=== PATIENT | male | born 1945 | race Caucasian/White ===

== ENCOUNTER 2023-12-17 11:36 | Day surgery (SDC) | payer OTHER ==
[~2023-12-17] VITALS: Ht 182.9 cm; Wt 88.3 kg
[2023-12-17] VITALS (7 sets, daily range): BP systolic 128–146; BP diastolic 71–98; PULSE 52–75; RESP 15–16; TEMP 97.7; O2SAT 94–99
[2023-12-17] MEDS ORDERED: DILT-94 PO (12:09)
[2023-12-17] MEDS ORDERED: RIVA20TA PO (12:09)
[2023-12-17] MEDS ORDERED: FLUT1BLS9 INH (12:09)
[2023-12-17] MEDS ORDERED: FLO0.4C PO (12:09)
[2023-12-17] MEDS ORDERED: ATOR40TA PO (12:09)
[2023-12-17] MEDS ORDERED: AMI200T PO (12:09)
[2023-12-17] MEDS ORDERED: D3 (12:09)
[2023-12-17] MEDS ORDERED: BUDE10.2 INH (12:09)
[2023-12-17 12:34] LABS: BASOPHILS % (AUTO) 0.3 % (0-1); EOSINOPHILS # (AUTO) 0.1 X10'3 (0-0.9); EOSINOPHILS % (AUTO) 1.8 % (0-6); HEMATOCRIT 41.3 % (42.0-52.0); HEMOGLOBIN 13.7 g/dl (14.0-17.9); MEAN CORPUSCULAR HEMOGLOBIN 30.7 PG (27.0-31.0); MEAN CORPUSCULAR HGB CONC 33.3 g/dL (33.0-36.5); MEAN CORPUSCULAR VOLUME 92.2 FL (78-98); MEAN PLATELET VOLUME 7.1 FL (7.4-10.4); MONOCYTES # (AUTO) 0.7 X10'3 (0-0.9); MONOCYTES % (AUTO) 11.9 % (2-12); PLATELET COUNT 255 X10'3 (140-440); RED BLOOD COUNT 4.48 X10'6 (4.70-6.10); RED CELL DISTRIBUTION WIDTH 14.2 % (11.5-14.5); WHITE BLOOD COUNT 5.8 X10'3 (4.5-11.0)
[2023-12-17] MEDS: LORazepam 0.5 MG tablet PO PRN (12:42)
[2023-12-17] MEDS: diphenhydrAMINE 25mg capsule PO PRN (12:42)
[2023-12-17] MEDS: normal saline 1,000 ML IV SCH (12:43)
[2023-12-17 12:44] LABS: INR 1.1 INR; PROTHROMBIN TIME 11.4 SECONDS (9.0-12.0)
[2023-12-17] MEDS ORDERED: LIDOcaine 1% (10mg/ml) 2ml vial ONE (13:10)
[2023-12-17] MEDS ORDERED: midazolam 1 mg/ML 2ml injection ONE (13:11)
[2023-12-17] MEDS ORDERED: fentaNYL/PF 50MCG/1 ML 2ML syringe ONE (13:11)
[2023-12-17] MEDS ORDERED: heparin 1,000unit/ml 10ml vial 10 ML ONE (13:11)
[2023-12-17] MEDS ORDERED: iohexol 350MG/ML 100ml bottle IV ONE (13:11)
[2023-12-17] MEDS ORDERED: nitroGLYCERIN 500mcg/5mL D5W 5 ML IV ONE (13:11)
[2023-12-17] MEDS ORDERED: verapamil 2.5 mg/ml inj IV ONE (13:11)
[2023-12-17 13:22] LABS: ALBUMIN 3.6 G/DL (3.4-5.0); ANION GAP 9 (8-16); BLOOD UREA NITROGEN 22 MG/DL (7-18); BUN/CREATININE RATIO 17.7 (10.0-20.0); CALCIUM 8.6 MG/DL (8.5-10.1); CHLORIDE 107 MMOL/L (99-107); CREATININE 1.24 MG/DL (0.60-1.10); GLUCOSE 97 MG/DL (70-104); POTASSIUM 4.3 MMOL/L (3.5-5.1); SODIUM 142 MMOL/L (135-145); TOTAL CARBON DIOXIDE 25.7 MMOL/L (24-32); eCRCL 54 ML/MIN; eGFR 56 ML/MIN
[2023-12-17 13:28] LABS: CHOL/HDL RATIO 2.2 (0.00-4.99); CHOLESTEROL 129 MG/DL (0-200); HDL CHOLESTEROL 58 MG/DL (35-60); LDL CHOLESTEROL 57 MG/DL (50-100); TRIGLYCERIDES 111 MG/DL (20-135)
[2023-12-17] MEDS ORDERED: iohexol 300mg/ml 100ml inj. ONE (14:18)
[2023-12-17] MEDS ORDERED: heparin 1,000 UNITS/NS 500ml 500 ML ONE (14:41)
[2023-12-17] MEDS ORDERED: clopidogrel 300mg tablet ONE (14:57)
[2023-12-17] MEDS ORDERED: aspirin 325mg tablet ONE (14:57)
[2023-12-17] MEDS ORDERED: HYDROcodone/acetaminophen 10/325mg tab PO PRN (16:55)
[2023-12-17] MEDS ORDERED: HYDROcodone/acetaminophen 5mg/325mg tablet PO PRN (16:55)
== END 2023-12-17 17:40 | disposition home or self-care (01) ==
LOC: SSTAY O 11:36
PROVIDERS: ATTEND Student in an Organized Health Care Education/Training Program
DX: R94.39 Abnormal result of other cardiovascular function study (principal); I25.10 Atherosclerotic heart disease of native coronary artery without angina pectoris; I10 Essential (primary) hypertension; E78.00 Pure hypercholesterolemia, unspecified; I48.91 Unspecified atrial fibrillation; Z86.73 Personal history of transient ischemic attack (TIA), and cerebral infarction without residual deficits; Z85.118 Personal history of other malignant neoplasm of bronchus and lung; Z85.828 Personal history of other malignant neoplasm of skin; Z79.01 Long term (current) use of anticoagulants; Z79.899 Other long term (current) drug therapy
CPT/HCPCS: 36415; 80048; 80061; 85025; 85610; 92972; 93005; 93454; 99152; 99153; A6258; C1874; C9600; J1644; J2250; J3010; J3490; J7030; Q0163; Q9967; 76937; 96360; A6402; C1725; C1751; C1761; C1769; C1894

== ENCOUNTER 2024-07-24 10:07 | Emergency (ER) | payer OTHER, MEDICARE ==
[~2024-07-24] VITALS: Ht 180.3 cm; Wt 95.0 kg
[~2024-07-24 10:07] MED LIST: AMI200T PO; ATOR40TA PO; BUDE10.2 INH; D3; DILT-94 PO; FLO0.4C PO; FLUT1BLS9 INH; RIVA20TA PO
[2024-07-24 11:40] LABS: BASOPHILS % (AUTO) 0.2 % (0-1); EOSINOPHILS % (AUTO) 0.4 % (0-6); HEMATOCRIT 34.7 % (42.0-52.0); HEMOGLOBIN 11.8 g/dl (14.0-17.9); LYMPHOCYTES # (AUTO) 1.2 X10'3 (1.1-4.8); LYMPHOCYTES % (AUTO) 14.6 % (21-51); MEAN CORPUSCULAR HEMOGLOBIN 31.5 PG (27.0-31.0); MEAN CORPUSCULAR HGB CONC 34.1 g/dL (33.0-36.5); MEAN CORPUSCULAR VOLUME 92.5 FL (78-98); MONOCYTES # (AUTO) 0.7 X10'3 (0-0.9); MONOCYTES % (AUTO) 9.1 % (2-12); NEUTROPHILS % (AUTO) 75.7 % (42-75); PLATELET COUNT 243 X10'3 (140-440); RED BLOOD COUNT 3.75 X10'6 (4.70-6.10); RED CELL DISTRIBUTION WIDTH 14.9 % (11.5-14.5)
[2024-07-24 11:44] VITALS: TEMP 97.7
[2024-07-24 11:44] LABS: PROTHROMBIN TIME 10.9 SECONDS (9.0-12.0)
[2024-07-24 11:56] LABS: ALBUMIN 3.5 G/DL (3.4-5.0); ANION GAP 10 (8-16); BLOOD UREA NITROGEN 16 MG/DL (7-18); CALCIUM 8.4 MG/DL (8.5-10.1); CHLORIDE 102 MMOL/L (99-107); CREATININE 1.07 MG/DL (0.60-1.10); GLUCOSE 94 MG/DL (70-104); POTASSIUM 4.2 MMOL/L (3.5-5.1); PRO BRAIN NATRIURETIC PEPTIDE 913 PG/ML (0-450); SODIUM 134 MMOL/L (135-145); TOTAL CARBON DIOXIDE 21.6 MMOL/L (24-32); eCRCL 61 ML/MIN; eGFR 67 ML/MIN
[2024-07-24 12:42] VITALS: BP 119/72; PULSE 76; RESP 16; O2SAT 95
== END 2024-07-24 12:57 | disposition home or self-care (01) ==
LOC: ER 10:08
DX: S20.212A Contusion of left front wall of thorax, initial encounter (principal); I48.91 Unspecified atrial fibrillation; Z79.899 Other long term (current) drug therapy; V86.99XA Unspecified occupant of other special all-terrain or other off-road motor vehicle injured in nontraffic accident, initial encounter; Y93.89 Activity, other specified; Y92.89 Other specified places as the place of occurrence of the external cause; Y99.8 Other external cause status
CPT/HCPCS: 36415; 71045; 80048; 83880; 84145; 84484; 85025; 85610; 93005; 99285